=== PATIENT | male | born 1960 | race Caucasian/White ===

== ENCOUNTER 2019-07-18 09:03 | Emergency (ER) | payer OTHER ==
[~2019-07-18] VITALS: Ht 188 cm; Wt 90.9 kg
[~2019-07-18 09:03] MED LIST: NO HOME MEDS
[2019-07-18 09:50] LABS: HEMOGLOBIN 15.4 g/dl (14.0-18.0); IMMATURE GRANULOCYTES 0.4 % (0.0-5.0); MEAN CELL VOLUME 96.7 fL CALC (80.0-100.0); MEAN CORPUSCULAR HGB 31.7 pG CALC (26.0-32.0); MEAN CORPUSCULAR HGB CONC 32.8 g/L CALC (32.0-36.0); NEUT# 5.45 thou/uL (1.82-7.42); RED BLOOD COUNT 4.86 mill/uL (4.70-6.10); RED CELL DISTRI WIDTH 13.2 % (11.5-15.5)
[2019-07-18 10:12] LABS: ALBUMIN 4.1 g/dL (3.2-5.0); ALKALINE PHOSPHATASE 85 u/l (38-126); ANION GAP 15 (6-22 (CALC)); BUN 18 mg/dL (9-20); BUN/CREATININE RATIO 28 (12-20 (CALC)); CARBON DIOXIDE 31 mmol/l (22-30); CHLORIDE 93 mmol/l (95-108); CREATININE 0.6 mg/dL (0.7-1.3); GFR > 60 ML/MIN (>=60 (CALC)); GFR FOR AFR.AMER. > 60 ML/MIN (>=60 (CALC)); LIPASE 69 u/l (23-300); POTASSIUM 4.6 mmol/l (3.5-5.1); SODIUM 135 mmol/l (137-146); TOTAL PROTEIN 7.3 g/dL (6.3-8.2)
[2019-07-18 10:13] LABS: BILIRUBIN, TOTAL 1.4 mg/dL (0.0-1.4); SGOT/AST 36 u/l (17-59)
[2019-07-18 10:41] LABS: TSH, 3RD GENERATION 2.45 uIU/mL (0.47 - 4.68)
[2019-07-18 11:14] LABS: URINE BILIRUBIN - DIPSTICK NEGATIVE (NEGATIVE); URINE BLOOD DIPSTICK SMALL (NEGATIVE); URINE COLOR YELLOW; URINE GLUCOSE - DIPSTICK NEGATIVE (NEGATIVE); URINE KETONE NEGATIVE (NEGATIVE); URINE LEUK ESTERASE NEGATIVE (NEGATIVE); URINE NITRITE - DIPSTICK NEGATIVE (Negative); URINE PH 5.5 (4.5-8.0); URINE PROTEIN - DIPSTICK NEGATIVE (NEG-TRACE)
[2019-07-18 11:16] LABS: URINE RBC 0-2 RBC/hpf (0-5)
[2019-07-18 11:34] VITALS: BP 130/86
== END 2019-07-18 12:02 | disposition short-term general hospital (02) | DRG 282 ==
LOC: ED 09:03
PROVIDERS: Family Medicine
DX: I21.4 Non-ST elevation (NSTEMI) myocardial infarction (principal); I50.9 Heart failure, unspecified; I48.91 Unspecified atrial fibrillation; F17.210 Nicotine dependence, cigarettes, uncomplicated
CPT/HCPCS: J1644

== ENCOUNTER 2021-04-05 08:11 | Emergency (ER) | payer OTHER ==
[~2021-04-05] VITALS: Ht 188 cm; Wt 79.0 kg
[2021-04-05] MEDS ORDERED: LIPITOR20 M1 PO (08:41)
[2021-04-05] MEDS ORDERED: LISINOPRIL2.5 MG PO (08:41)
[2021-04-05] MEDS ORDERED: METOPROL TAR25 MG PO (08:42)
[2021-04-05] MEDS ORDERED: SPIRONOLACT25 MG PO (08:43)
[2021-04-05] MEDS ORDERED: ELIQUIS5 MG PO (08:43)
[2021-04-05] MEDS ORDERED: ADVAIR DISK1 INH (08:44)
[2021-04-05 09:13] LABS: IMMATURE GRANULOCYTES 0.4 % (0.0-5.0); MEAN CELL VOLUME 97.6 fL CALC (80.0-100.0); MEAN CORPUSCULAR HGB 32.5 pG CALC (26.0-32.0); MEAN CORPUSCULAR HGB CONC 33.3 g/dL CAL (32.0-36.0); NEUT# 17.09 thou/uL (1.82-7.42); RED BLOOD COUNT 3.72 mill/uL (4.70-6.10); RED CELL DISTRI WIDTH 12.2 % (11.5-15.5)
[2021-04-05 09:14] LABS: HEMATOCRIT 36.3 % (39.0-50.0); HEMOGLOBIN 12.1 g/dl (14.0-18.0)
[2021-04-05 09:35] LABS: ALKALINE PHOSPHATASE 82 u/l (38-126); AMYLASE 51 u/l (30-110); ANION GAP 15 (6-22 (CALC)); CARBON DIOXIDE 37 mmol/l (22-30); CHLORIDE 82 mmol/l (95-108); LIPASE 44 u/l (23-300); POTASSIUM 3.9 mmol/l (3.5-5.1); SGOT/AST 23 u/l (17-59); SODIUM 131 mmol/l (137-146); TOTAL PROTEIN 6.8 g/dL (6.3-8.2)
[2021-04-05 09:43] LABS: BILIRUBIN, TOTAL 0.4 mg/dL (0.0-1.4); BUN 66 mg/dL (9-20); BUN/CREATININE RATIO 30 (12-20 (CALC)); CREATININE 2.2 mg/dL (0.7-1.3); GFR 31 ML/MIN (>=60 (CALC)); GFR FOR AFR.AMER. 37 ML/MIN (>=60 (CALC))
[2021-04-05 09:47] LABS: MYOGLOBIN 119 ng/mL (0 - 121)
[2021-04-05 12:40] VITALS: BP 136/77
--- NOTE | 2021-04-07 07:58 | NUR ---
PRELIM BLOOD CX SHOWS GRAM POSITIVE COCCI IN 1/. REPORTED TO GUTIERREZ AT [facility] AND FAXED TO [phone]. WILL F/U WITH FINAL
--- NOTE | 2021-04-08 10:10 | NUR ---
FINAL BLOOD CX RSULTS REPORTED TO KEATON AT [facility] AND FAXED TO [phone]
== END 2021-04-05 12:41 | disposition short-term general hospital (02) | DRG 871 ==
LOC: ED 08:11
PROVIDERS: Emergency Medicine
DX: A41.89 Other specified sepsis (principal); U07.1 COVID-19; I48.91 Unspecified atrial fibrillation; E83.52 Hypercalcemia; N28.89 Other specified disorders of kidney and ureter; R91.8 Other nonspecific abnormal finding of lung field; J10.1 Influenza due to other identified influenza virus with other respiratory manifestations; I10 Essential (primary) hypertension; J44.9 Chronic obstructive pulmonary disease, unspecified; E78.5 Hyperlipidemia, unspecified; F17.210 Nicotine dependence, cigarettes, uncomplicated
CPT/HCPCS: J3489; S0164